=== PATIENT | male | born 1940 | race Native Hawaiian/Other Pacific Islander ===

== ENCOUNTER 2017-03-28 06:02 | Day surgery (SDC) | payer MEDICARE, BC ==
[2017-03-22 08:52] VITALS: BMI 25.3
[2017-03-28] MEDS ORDERED: Lactated Ringer's 500 ML IV ONE ×3 (08:15→09:00)
[2017-03-28] MEDS ORDERED: Propofol 10 mg/ml Inj (20 ML) ONE (08:23)
[2017-03-28] MEDS ORDERED: cefTRIAXone IV 1 gm in Dextros 50 ML IVPB ONE (08:25)
[2017-03-28] MEDS ORDERED: Lidocaine 2% Jelly (Uro-Jet) ONE (08:26)
[2017-03-28] MEDS ORDERED: Iohexol 240 200 ML IJ ONE (08:39)
--- NOTE | 2017-03-28 09:02 | PCM.SURG1 ---
Surgeon's Initial Post Op Note - Surgeon's Notes Surgeon: [facility] [employer] Prevention Manager: none Type of Anesthesia: General LMA Pre-Operative Diagnosis: BPH Operative Findings: same Post-Operative Diagnosis: same Operation Performed: cystoscopy. fulguration of prostatic bleeding. cystogram Specimen/Specimens Removed: urine Estimated Blood Loss: EBL {In ML}: 0 Blood Products Given: N/A Drains Used: No Drains Post-Op Condition: Good Date of Surgery/Procedure: 03/28/17 Time of Surgery/Procedure: 09:01
[2017-03-28 09:14] VITALS: O2SAT 100
--- NOTE | 2017-03-28 09:35 | RAD ---
PROCEDURE: Intraoperative Fluoroscopy. HISTORY: Benign prostatic hypertrophy FINDINGS: Fluoroscopic assistance was provided for cystometrogram. Please refer
[2017-03-28 11:22] VITALS: BP 156/70; PULSE 64; RESP 18; TEMP 97
--- NOTE | 2017-03-28 15:29 | RAD ---
HISTORY: BPH COMPARISON: No prior. FINDINGS: BOWEL: Moderate amount stool seen within the ascending colon consistent with fecal retention/constipation BONES: Osseous structures appear grossly unremarkable. Questionable bone island overlying the left the medial superior iliac wing OTHER FINDINGS: Urethral/bladder instrumentation device overlying the mid inferior pelvis IMPRESSION: Status post urethral/ bladder instrumentation.
--- NOTE | 2017-03-28 18:36 | OP ---
DATE OF PROCEDURE: 03/28/2017 PREOPERATIVE DIAGNOSES: 1. Prostatic hypertrophy. 2. Voiding dysfunction. POSTOPERATIVE DIAGNOSES: 1. Prostatic hypertrophy. 2. Voiding dysfunction. 3. Benign prostatic hypertrophy. 4. Prostatitis. PROCEDURES: 1. Cystoscopy. 2. Fulguration of prostate. 3. Cystogram. OPERATING SURGEON: Jagruti Gray MD PROCEDURE FOLLOWS: The patient received perioperative antibiotics. The patient was placed in lithotomy position. Genitalia prepped and sterilely. Anesthesia was provided by the anesthesiologist. A 22-[place] cystoscope sheath was introduced under direct vision. Urethra, prostate and bladder were inspected 30 degrees and 70 degrees lenses. FINDINGS: There was no stricture in the anterior urethra. There was evidence of lateral lobe hypertrophy. Prostatic urethra length was 3 cm. The prostatic urethra was occlusive. There was no bladder neck contraction. There was moderate bleeding from the prostatic urethra mucosal surface at the bladder neck and proximal prostatic urethra. The bladder was noted to be mildly trabeculated. There was no bladder tumor. There is no bladder stone. There was no diverticula. The ureteral orifices were normal position and shape. The bladder was inspected with 70 degree lens and confirmed the above findings. The bleeding at the prostatic urethra and bladder neck was controlled with ball electrode and electrocautery fulguration. Hemostasis was complete. Iodinated contrast was instilled via the cystoscope. The cystogram was performed under fluoroscopic control. These findings on cystogram include mild elevation of the bladder base with impression of the prostate. There was no vesicoureteral reflux. There were no intrinsic or extrinsic filling defects within the bladder. Post drainage film was obtained as well. The bladder was then drained. Cystoscope sheath removed. Rectal examination was performed. Prostate was supple and smooth approximately 25 g in size, without fixation, induration or nodularity. The patient tolerated the procedure without complication. Jagruti Gray MD cc: Jagruti Gray MD
== END 2017-03-28 11:31 | disposition home or self-care (01) ==
LOC: C.SDS 06:02
PROVIDERS: ATTEND Urology
DX: N40.1 Benign prostatic hyperplasia with lower urinary tract symptoms (principal); N41.9 Inflammatory disease of prostate, unspecified
CPT/HCPCS: 52214; 74000; 87086; 88104; J0360; J0696; J7120